=== PATIENT | male | born 1955 ===

== ENCOUNTER → 2022-09-03 | Outpatient (CLI) | payer OTHER ==
[~2022-09-03] VITALS: Ht 177.8 cm; Wt 95.5 kg
[2022-09-03 08:37] VITALS: BP 120/75
== END | disposition home or self-care (01) ==
LOC: SRCNTR 08:16
PROVIDERS: ATTEND Internal Medicine
DX: J44.9 Chronic obstructive pulmonary disease, unspecified (principal); G47.33 Obstructive sleep apnea (adult) (pediatric)
CPT/HCPCS: G0463; Z7500

== ENCOUNTER → 2023-09-28 | Outpatient (CLI) | payer OTHER ==
[~2023-09-28] VITALS: Ht 177.8 cm; Wt 220.0 kg
[2023-09-28 10:38] VITALS: BP 122/83; PULSE 89; RESP 18; TEMP 97.5; O2SAT 95
== END | disposition home or self-care (01) ==
LOC: SRCNTR 10:26
PROVIDERS: ATTEND Internal Medicine
DX: J43.9 Emphysema, unspecified (principal); J44.9 Chronic obstructive pulmonary disease, unspecified; G47.33 Obstructive sleep apnea (adult) (pediatric); J84.9 Interstitial pulmonary disease, unspecified; K46.9 Unspecified abdominal hernia without obstruction or gangrene; I77.810 Thoracic aortic ectasia; K74.60 Unspecified cirrhosis of liver; Z95.2 Presence of prosthetic heart valve; Z79.899 Other long term (current) drug therapy; Z88.8 Allergy status to other drugs, medicaments and biological substances
CPT/HCPCS: G0463; Z7500